=== PATIENT | female | born 1950 | race Caucasian/White ===

== ENCOUNTER 2024-04-06 15:26 | Observation (INO) | payer MEDICARE ==
[~2024-04-06] VITALS: Ht 162.6 cm; Wt 53.8 kg
[2024-04-06] MEDS ORDERED: HYDR12CA PO (15:52)
[2024-04-06] MEDS ORDERED: LISI20TA33 PO (15:52)
[2024-04-06 17:23] LABS: BASO # 0.1 10^3/uL (0.0-0.2); BASO % 0.6 % (0.0-1.0); EOS # 0.3 10^3/uL (0.0-0.5); HEMATOCRIT 47.8 % (36.0-47.0); HEMOGLOBIN 15.7 g/dl (12.0-15.5); LYMPH # 1.8 10^3/uL (1.5-5.0); LYMPH % 23.2 % (24.0-44.0); MEAN CORPUSCULAR HEMOGLOBIN 30.7 pg (27.0-33.0); MEAN CORPUSCULAR HGB CONC 32.8 g/dl (32.0-36.5); MEAN CORPUSCULAR VOLUME 93.4 fl (80.0-96.0); MONO # 0.5 10^3/uL (0.0-0.8); NEUTROPHILS # 5.1 10^3/uL (1.5-8.5); NEUTROPHILS % 65.9 % (36.0-66.0); PLATELET COUNT, AUTOMATED 262 10^3/uL (150-450); RED BLOOD COUNT 5.12 10^6/uL (4.00-5.40); WHITE BLOOD COUNT 7.8 10^3/uL (4.0-10.0)
[2024-04-06 17:25] LABS: AMPHETAMINES LEVEL URINE NEGATIVE (NEGATIVE)
[2024-04-06 17:26] LABS: BARBITURATES URINE NEGATIVE (NEGATIVE); BENZODIAZEPINES URINE NEGATIVE (NEGATIVE); CANNABINOIDS URINE NEGATIVE (NEGATIVE); COCAINE METABOLITE URINE NEGATIVE (NEGATIVE); METHADONE URINE NEGATIVE (NEGATIVE); OPIATES URINE NEGATIVE (NEGATIVE); PHENCYCLIDINE URINE NEGATIVE (NEGATIVE)
[2024-04-06 17:40] LABS: ETHYL ALCOHOL (ETHANOL) 0.003 % (0.000-0.010)
[2024-04-06 17:42] LABS: ALBUMIN 4.2 G/DL (3.2-5.2); ALKALINE PHOSPHATASE 65 U/L (46-116); ALT/SGPT 20 U/L (7.0-40); AST/SGOT 16 U/L (<34); BILIRUBIN,DIRECT 0.1 MG/DL (<0.4); BILIRUBIN,TOTAL 0.4 MG/DL (0.3-1.2); BLOOD UREA NITROGEN 21 MG/DL (9-23); CALCIUM LEVEL 9.9 MG/DL (8.3-10.6); CARBON DIOXIDE LEVEL 30 MMOL/L (20-31); CHLORIDE LEVEL 105 MMOL/L (98-107); GLOMERULAR FILTRATION RATE > 60.0 (>39); GLUCOSE, FASTING 90 MG/DL (74-106); POTASSIUM SERUM 3.6 MMOL/L (3.5-5.1); SALICYLATE LEVEL < 3.0 MG/DL (<30); SODIUM LEVEL 140 MMOL/L (136-145)
[2024-04-06 17:44] LABS: THYROID STIMULATING HORMONE 1.005 uIU/ML (0.55-4.78)
[2024-04-06] MEDS ORDERED: HOME MED LIST COMPLETE! XX SCH (18:20)
[2024-04-06 18:39] LABS: OSMOLALITY SERUM 301 MOSM/KG (280-301)
[2024-04-07] MEDS ORDERED: MOM 30ML SUSPENSION UDC PO PRN (02:05)
[2024-04-07] MEDS: lisinopriL 40MG TAB PO SCH (07:58)
[2024-04-07] MEDS: DOCUSATE SODIUM 100MG CAPSULE PO SCH (07:58)
[2024-04-07] MEDS: hydroCHLOROthiazide 12.5 MG CAPSULE PO SCH (07:58)
[2024-04-10 16:38] VITALS: BP 141/62; TEMP 97.9; O2SAT 97
[2024-04-10 19:44] VITALS: BP 132/83; TEMP 97.7; O2SAT 98
[2024-04-10 20:00] VITALS: BP 132/83; TEMP 97.7; O2SAT 98
[2024-04-11 03:56] VITALS: BP 132/75; TEMP 97.9; O2SAT 98
[2024-04-11] MEDS: lisinopriL 40MG TAB PO SCH (10:16)
[2024-04-11] MEDS: hydroCHLOROthiazide 12.5 MG CAPSULE PO SCH (10:16)
[2024-04-11 12:00] VITALS: BP 121/61; TEMP 97.9; O2SAT 97
[2024-04-11 20:08] VITALS: BP 141/68; TEMP 97.5; O2SAT 96
[2024-04-11] MEDS: ACETAMINOPHEN TAB 650MG DOSE (2X325MG) PO PRN (20:10)
[2024-04-12 04:28] VITALS: BP 104/52; TEMP 97.2; O2SAT 97
[2024-04-12] MEDS: ENOXAPARIN 40MG/0.4ML SYRINGE (J1650 PER 10MG) SC SCH (08:03)
[2024-04-12 12:00] VITALS: BP 142/61; TEMP 97; O2SAT 98
[2024-04-12 20:18] VITALS: BP 151/74; TEMP 97.7; O2SAT 98
[2024-04-13 04:55] VITALS: BP 143/73; TEMP 97.3; O2SAT 97
[2024-04-13 12:00] VITALS: BP 140/64; TEMP 97.5; O2SAT 99
[2024-04-13 19:42] VITALS: BP 95/49; TEMP 98.8; O2SAT 95
[2024-04-13 20:00] VITALS: BP 95/49; TEMP 98.8; O2SAT 95
[2024-04-14 03:53] VITALS: BP 134/65; TEMP 98.2; O2SAT 97
[2024-04-14 12:09] VITALS: BP 139/66; TEMP 98.1; O2SAT 100
[2024-04-16 03:51] VITALS: BP 135/64; TEMP 98.1; O2SAT 97
[2024-04-17 03:51] VITALS: BP 113/57; TEMP 97; O2SAT 96
[2024-04-17] MEDS: BENZONATATE 100MG CAPSULE PO PRN (08:56)
[2024-04-17 20:00] VITALS: BP 128/68; TEMP 98.1; O2SAT 99
[2024-04-18 20:53] VITALS: BP 141/73; TEMP 97.7
[2024-04-19 05:25] VITALS: BP 110/61; TEMP 97.9
[2024-04-19 07:32] LABS: HEMATOCRIT 43.9 % (36.0-47.0); HEMOGLOBIN 14.5 g/dl (12.0-15.5); MEAN CORPUSCULAR HEMOGLOBIN 30.6 pg (27.0-33.0); MEAN CORPUSCULAR VOLUME 92.6 fl (80.0-96.0); PLATELET COUNT, AUTOMATED 186 10^3/uL (150-450); RED BLOOD COUNT 4.74 10^6/uL (4.00-5.40); WHITE BLOOD COUNT 4.6 10^3/uL (4.0-10.0)
[2024-04-19 08:01] LABS: ALBUMIN 3.3 G/DL (3.2-5.2); ALKALINE PHOSPHATASE 55 U/L (46-116); ALT/SGPT 37 U/L (7.0-40); AST/SGOT 25 U/L (<34); BILIRUBIN,TOTAL 0.4 MG/DL (0.3-1.2); BLOOD UREA NITROGEN 19 MG/DL (9-23); CALCIUM LEVEL 9.1 MG/DL (8.3-10.6); CARBON DIOXIDE LEVEL 30 MMOL/L (20-31); CHLORIDE LEVEL 108 MMOL/L (98-107); CREATININE FOR GFR 0.77 MG/DL (0.55-1.30); GLOMERULAR FILTRATION RATE > 60.0 (>39); GLUCOSE, FASTING 81 MG/DL (74-106); POTASSIUM SERUM 4.1 MMOL/L (3.5-5.1); SODIUM LEVEL 143 MMOL/L (136-145); TOTAL PROTEIN 6.2 G/DL (5.7-8.2)
[2024-04-19 21:06] VITALS: BP 154/85; TEMP 98.1; O2SAT 98
[2024-04-20 05:20] VITALS: BP 122/60; TEMP 98.1
[2024-04-20] MEDS: BREXPIPRAZOLE 0.5MG TABLET (REXULTI) PO SCH (08:40)
[2024-04-20 12:00] VITALS: BP 140/69; TEMP 97.6; O2SAT 99
[2024-04-20 20:45] VITALS: BP 132/64; TEMP 97.7; O2SAT 98
[2024-04-21 05:40] VITALS: BP 151/72; TEMP 97.7; O2SAT 97
[2024-04-22 04:38] VITALS: BP 114/59; TEMP 97.9; O2SAT 98
[2024-04-22 19:35] VITALS: BP 109/58; TEMP 97.9; O2SAT 98
[2024-04-23 04:36] VITALS: BP 113/58; TEMP 97; O2SAT 96
[2024-04-23 08:17] VITALS: BP 137/73
[2024-04-23 12:00] VITALS: BP 131/69; TEMP 97.9; O2SAT 98
[2024-04-23 19:34] VITALS: BP 96/56; TEMP 97.9; O2SAT 98
[2024-04-24 03:47] VITALS: BP 95/58; TEMP 97.9; O2SAT 99
[2024-04-24 11:45] VITALS: BP 127/69; TEMP 97.9; O2SAT 99
[2024-04-24 19:36] VITALS: BP 98/56; TEMP 98.2; O2SAT 97
[2024-04-25 03:50] VITALS: BP 106/57; TEMP 98.1; O2SAT 98
[2024-04-25 12:20] VITALS: BP 128/61; TEMP 98.1; O2SAT 98
[2024-04-25 20:54] VITALS: BP 120/55; TEMP 97.9; O2SAT 98
[2024-04-26 04:09] VITALS: BP 123/62; TEMP 97.5; O2SAT 100
[2024-04-26 08:29] VITALS: BP 113/49
[2024-04-26] MEDS ORDERED: REXU1TAB2 PO (08:58)
[2024-04-26] MEDS ORDERED: COLA100C5 PO (08:58)
== END 2024-04-26 10:45 ==
LOC: M ED 15:26 → M ED INP 04-10 13:15 → M MS5PR 04-10 16:35
PROVIDERS: ADMIT Internal Medicine; ATTEND Internal Medicine Nephrology
DX: G31.09 Other frontotemporal neurocognitive disorder (principal); F02.818 Dementia in other diseases classified elsewhere, unspecified severity, with other behavioral disturbance; U07.1 COVID-19; R82.71 Bacteriuria; I10 Essential (primary) hypertension; Z74.1 Need for assistance with personal care; R45.850 Homicidal ideations; R45.851 Suicidal ideations; Z90.711 Acquired absence of uterus with remaining cervical stump; Z79.899 Other long term (current) drug therapy
CPT/HCPCS: 36415; 70450; 80048; 80053; 80076; 80143; 80307; 81001; 82077; 82140; 83930; 84443; 85025; 85027; 87086; 87426; 87635; 93005; 99285; G0378